=== PATIENT | female | born 1960 | race Caucasian/White ===

== ENCOUNTER 2017-09-29 16:41 | Emergency (ER) | payer MEDICARE, OTHER ==
[~2017-09-29] VITALS: Ht 160 cm; Wt 53.0 kg
[~2017-09-29 16:41] MED LIST: ALBU1AER INH; DEXI30CA2 PO; LYRI150C PO; MORP60TA20 PO; SERT-132 PO; SYMB80AE INH
[2017-09-29 16:44] VITALS: BP 147/70; PULSE 109; RESP 16; TEMP 98.6; O2SAT 98
[2017-09-29] MEDS ORDERED: DIFL100T PO (17:06)
[2017-09-29] MEDS ORDERED: OMEP20TA93 PO (17:06)
[2017-09-29] MEDS ORDERED: LYRI150C PO (17:06)
[2017-09-29] MEDS ORDERED: MORP100T40 PO (17:06)
[2017-09-29 17:26] VITALS: PULSE 89; RESP 18; O2SAT 98
--- NOTE | 2017-09-29 18:29 | RADRPT ---
EXAM DATE/TIME: 09/29/2017 18:04 [facility] COMPARISON: No previous studies available for comparison. [facility] BIL[facility] VEN[facility]PLER, April 11, 2017 INDICATIONS : Left leg pain. MEDICAL HISTORY : Deep venous thrombosis. Chronic obstructive pulmonary disease. Gastroesophageal reflux disease. Ce rebrovascular accident. Migraines. Hypertension. Pneumonia. Hiatal hernia. IBS. Heart palpatations. L umbar fractures. Fibromyalgia. Arthritis. PTSD. Depression. SURGICAL HISTORY : Cholecystectomy. Hysterectomy. Fusion, cervical. Spinal stimulator. Right ankle surgery. ENCOUNTER: Initial ACUITY: 3 days PAIN SCORE: 4/10 LOCATION: Left leg. TECHNIQUE: Venous ultrasound of the leg was performed from the inguinal ligament to the proximal calf. Real-belkys e, color Doppler and spectral tracing, compression and augmentation techniques were used. FINDINGS: There is normal compressibility of the deep venous system from the inguinal region to the proximal ca lf. No echogenic clot is seen in the lumen of the common femoral, femoral, popliteal, and posterior tibial veins. There is a normal response of the venous system to proximal and distal augmentation an d respiration. CONCLUSION: Normal examination. Juan Pal MD on September 29, 2017 at 18:27 Board Certified Radiologist. This report was verified electronically.
[2017-09-29] MEDS ORDERED: KETOROLAC TROMETHAMINE 60 MG/2 ML (IM) VIAL IM ONE (18:45)
[2017-09-29] MEDS ORDERED: MELO15TA20 PO (18:45)
--- NOTE | 2017-09-29 18:46 | PD ---
HPI Chief Complaint: Musculoskeletal Complaint Time Seen by Provider: 17:18 Travel History International Travel<30 days: No Contact w/Intl Traveler<30days: No Traveled to known affect area: No History of Present Illness HPI 56-year-old female here for evaluation of left leg pain. She denies injury or trauma. She reports she did do extensive walking which is not normal for her yesterday. She awoke this morning with anterior posterior knee pain. Patient does have a history of DVT in 2013. She is not on anticoagulants at this time. She denies lower extremity swelling. She denies paresthesia or weakness of the extremity. Pain is worse with flexion of the knee and relieved with rest. PFSH Past Medical History Arthritis: Yes Asthma: No Blood Disorders: No Anxiety: No Depression: Yes Heart Rhythm Problems: Yes (PALPATATIONS) Cancer: No Cardiovascular Problems: No High Cholesterol: No Chest Pain: No Congestive Heart Failure: No COPD: Yes Cerebrovascular Accident: Yes ("VISUAL STROKE" 1998) Diabetes: No Diminished Hearing: No Deep Vein Thrombosis: Yes (LLE) Endocrine: No Fibromyalgia: Yes Gastrointestinal Disorders: Yes (REFLUX, ESOPHAGEAL STRICTURE) GERD: Yes Glaucoma: No Genitourinary: No Hepatitis: No Hiatal Hernia: Yes Hypertension: Yes Immune Disorder: No Medical other: Yes (RIGHT GREAT TOE FRACTURES) Musculoskeletal: Yes (BACK AND NECK, Fx L1-L2, Fx L4-L5,) Neurologic: Yes (STROKE IN EYES 1998, cervical dystonia, reflex sympathetic dystrophy) Psychiatric: No Reproductive: Yes (TOTAL HYSTERECTOMY) Respiratory: No Immunizations Current: No Myocardial Infarction: No Pneumonia: Yes Renal Failure: No Seizures: No Sleep Apnea: No Thyroid Disease: No Ulcer: No Tetanus Vaccination: < 5 Years Influenza Vaccination: No ?: Not Menopausal: Yes : 0 Para: 0 Miscarriage: 0 : 0 Past Surgical History Abdominal Surgery: Yes (PAVEL) AICD: No Appendectomy: No Body Medical Devices: TEETH, PLATES AND SCREWS CERVICAL NECK, SPINAL CORD STIMULATOR: JUL 2014 Cardiac Surgery: No Cholecystectomy: Yes Ear Surgery: No Endocrine Surgery: No Eye Surgery: No Genitourinary Surgery: No Gynecologic Surgery: Yes (HYSTERECTOMY) Hysterectomy: Yes Joint Replacement: No Neurologic Surgery: Yes (SPINAL STIMULATOR) Oral Surgery: No Pacemaker: No Thoracic Surgery: No Other Surgery: Yes Social History Alcohol Use: Yes (rare) Tobacco Use: Yes (1/2 PACK PER DAY) Substance Use: No Allergies-Medications (Allergen,Severity, Reaction): Coded Allergies: cefazolin (Unverified Allergy, Severe, Itching, 09/29/17) cefepime (Unverified Allergy, Severe, Rash, 09/29/17) FEVER DIFFICULTY BREATHING ceftaroline fosamil (Unverified Allergy, Severe, Rash, 09/29/17) FEVER DIFFICULTY BREATHING doxycycline (Unverified Allergy, Severe, NAUSEA VOMITING, 09/29/17) [employer] levofloxacin (Unverified Allergy, Severe, 09/29/17) HIVES; HIGH FEVER minocycline (Unverified Allergy, Severe, NAUSEA VOMITING, 09/29/17) [employer] tigecycline (Unverified Allergy, Severe, NAUSEA VOMITING, 09/29/17) [employer] vancomycin (Unverified Allergy, Intermediate, rashes/itchy, 09/29/17) imipramine (Unverified Allergy, Mild, 09/29/17) RASH, ELEVATED BP, DIFFICULTY BREATHING lidocaine (Unverified Allergy, Mild, 09/29/17) RASH, ELEVATED BP, DIFICULTY BREAthing cephalexin (Unverified Allergy, Unknown, 09/29/17) RASH, DIFFICULTY BREATHING, FEVER trazodone (Unverified Allergy, Unknown, 09/29/17) FEVER, RASH, DIFFICULTY BREATHING Reported Meds & Prescriptions Reported Meds & Active Scripts Active Meloxicam 15 Mg Tab 15 Mg PO DAILY Reported Diflucan (Fluconazole) 100 Mg Tab 100 Mg PO DAILY Omeprazole 20 Mg Tab 20 Mg PO DAILY Lyrica (Pregabalin) 150 Mg Cap 150 Mg PO TID Morphine Sulfate CR (Morphine Sulfate) 100 Mg Tab 100 Mg PO TID Review of Systems Except as stated in HPI: all other systems reviewed are Neg General / Constitutional: No: Fever Eyes: No: Visual changes HENT: No: Headaches Cardiovascular: No: Chest Pain or Discomfort Respiratory: No: Shortness of Breath Gastrointestinal: No: Abdominal Pain Genitourinary: No: Dysuria Physical Exam Narrative GENERAL: Well-nourished, well-developed patient. SKIN: Focused skin assessment warm/dry. HEAD: Normocephalic. EYES: No injection or drainage. NECK: Supple, trachea midline. No JVD or lymphadenopathy. CARDIOVASCULAR: Regular rate and rhythm without murmurs, gallops, or rubs. RESPIRATORY: Breath sounds equal bilaterally. No accessory muscle use. GASTROINTESTINAL: Abdomen soft, non-tender, nondistended. MUSCULOSKELETAL: No cyanosis. Hyper pigmentation noted to bilateral lower extremities. Tenderness and mild swelling to the left anterior posterior knee. Mild left calf tenderness. 2+ popliteal, posterior tibial, dorsal pedis pulses bilaterally. No pedal edema. Brisk cap refill. Data Data Last Documented VS Vital Signs Date Time Temp Pulse Resp B/P (MAP) Pulse Ox O2 Delivery O2 Flow Rate FiO2 09/29/17 17:26 89 18 98 Room Air 09/29/17 16:44 98.6 147/70 (95) Orders Orders Us Leg Venous Doppler (09/29/17 17:24) Ketorolac Inj (Toradol Inj) (09/29/17 18:45) Joseph Bandage (09/29/17 18:41) MDM Medical Decision Making Medical Screen Exam Complete: Yes Emergency Medical Condition: Yes Differential Diagnosis Differential diagnosis for left leg pain include but are not limited to: Knee sprain/strain, meniscal injury, DVT Narrative Course 36-year-old female here with nontraumatic left knee pain times one day. Patient has a history of DVT in the left leg in 2013. She has generalized anterior/posterior knee pain. No signs of infection. The joint is stable. The extremity is neurovascularly intact. Ultrasound of the left lower extremity is negative for DVT. Patient will be treated for knee strain. Diagnosis Primary Impression: Knee pain Qualified Codes: M25.562 - Pain in left knee Referrals: Primary Care Physician Additional Instructions: Ice and elevate the extremity. Avoid prolonged walking on the leg. Take medication as prescribed. Follow-up the primary doctor Scripts Meloxicam (Meloxicam) 15 Mg Tab 15 MG PO DAILY for Arthritis Pain, #14 TAB 0 Refills Prov: Anabell Maurer 09/29/17 Disposition: 01 DISCHARGE HOME Condition: Stable Anabell Maurer Sep 29, 2017 18:46
== END 2017-09-29 19:00 | disposition home or self-care (01) ==
LOC: PHEFT 16:41
DX: M25.562 Pain in left knee (principal); I10 Essential (primary) hypertension; J44.9 Chronic obstructive pulmonary disease, unspecified; F32.9 Major depressive disorder, single episode, unspecified; M79.7 Fibromyalgia; K21.9 Gastro-esophageal reflux disease without esophagitis; F17.200 Nicotine dependence, unspecified, uncomplicated; Z86.718 Personal history of other venous thrombosis and embolism; Z86.73 Personal history of transient ischemic attack (TIA), and cerebral infarction without residual deficits
CPT/HCPCS: 93971; 96372; 99285; J1885

== ENCOUNTER 2017-12-27 19:52 | Emergency (ER) | payer MEDICARE, OTHER ==
[~2017-12-27] VITALS: Ht 162.6 cm; Wt 52.3 kg
[~2017-12-27 19:52] MED LIST changes: -ALBU1AER INH; -DEXI30CA2 PO; +DIFL100T PO; +MELO15TA20 PO; +MORP100T40 PO; -MORP60TA20 PO; +OMEP20TA93 PO; -SERT-132 PO; -SYMB80AE INH
[2017-12-27 19:57] VITALS: BP 188/94; PULSE 104; RESP 18; TEMP 98.6; O2SAT 100
[2017-12-27] MEDS ORDERED: ACETAMINOPHEN/HYDROcodone 325 MG/5 MG TAB PO ONE (20:30)
[2017-12-27 21:15] VITALS: BP 132/75; PULSE 82; RESP 14; O2SAT 99
[2017-12-27] MEDS ORDERED: KETOROLAC TROMETHAMINE 30 MG/ML (IVP) VIAL IV PUSH ONE (21:30)
[2017-12-27 21:36] LABS: BASOPHIL % 0.5 % (0.0-2.0); EOSINOPHIL # 0.1 TH/MM3 (0-0.4); EOSINOPHIL % 1.7 % (0.0-4.0); HEMATOCRIT 38.1 % (35.0-46.0); HEMOGLOBIN 12.5 GM/DL (11.6-15.3); LYMPH % 34.8 % (9.0-44.0); LYMPHOCYTE # 2.6 TH/MM3 (1.0-4.8); MEAN CELL VOLUME 88.5 FL (80.0-100.0); MEAN CORPUSCULAR HGB CONC 32.7 % (32.0-36.0); MEAN PLATELET VOLUME 7.3 FL (7.0-11.0); MONO % 8.9 % (0.0-8.0); MONOCYTE # 0.7 TH/MM3 (0-0.9); NEUT % 54.1 % (16.0-70.0); PLATELET COUNT 268 TH/MM3 (150-450); RED CELL DISTRIBUTION WIDTH 12.9 % (11.6-17.2); WHITE BLOOD COUNT 7.4 TH/MM3 (4.0-11.0)
--- NOTE | 2017-12-27 21:42 | RADRPT ---
EXAM DATE/TIME: 12/27/2017 20:40 [facility] COMPARISON: US LEG LEFT VENOUS DOPPLER, September 29, 2017, 18:04. EXTERNAL COMPARISON : [facility], [facility] LE[facility], [facility] BILATE [facility]AL VENOUS DOPPLER, May 27, 2016. [facility], US LEG, BILATERAL VENOUS DOPPLER, April 15, 2 016. INDICATIONS : Left leg swelling. MEDICAL HISTORY : Deep venous thrombosis. Chronic obstructive pulmonary disease. Hypercholesterolemia. Cerebrovascul ar accident. Migraines. Irregular heartbeat. Hypertension. Pneumonia. Hiatal hernia. GERD. Fibromyalg ia. Arthritis. PTSD. Depression. Toe fractures. Back fractures. IBS. SURGICAL HISTORY : Hysterectomy. Cholecystectomy. Fusion, cervical. Spinal stimulator. Right ankle surgery. ENCOUNTER: [facility] ACUITY: 1 day PAIN SCORE: 5/10 LOCATION: Left leg. TECHNIQUE: Venous ultrasound of the leg was performed from the inguinal ligament to the proximal calf. Real-belkys e, color Doppler and spectral tracing, compression and augmentation techniques were used. FINDINGS: Normal flow is seen in the common femoral, femoral, popliteal, and peroneal veins. No flow is seen wi thin the posterior tibial vein. CONCLUSION: Thrombus in the left posterior tibial vein the remaining visualized veins in the left lower extremity are patent. Juan Ty MD on December 27, 2017 at 21:38 Board Certified Radiologist. This report was verified electronically.
[2017-12-27 21:57] LABS: CHLORIDE 105 MEQ/L (98-107); SODIUM (NA) 141 MEQ/L (136-145)
[2017-12-27 22:00] LABS: CALCIUM 8.5 MG/DL (8.5-10.1)
[2017-12-27] MEDS ORDERED: traMADol HCL 50 MG TAB PO ONE (22:00)
[2017-12-27 22:01] LABS: ALBUMIN 3.6 GM/DL (3.4-5.0); BICARBONATE 30.1 MEQ/L (21.0-32.0); BLOOD UREA NITROGEN 7 MG/DL (7-18); GLUCOSE,RANDOM 126 MG/DL (74-106)
[2017-12-27 22:03] LABS: PROTHROMBIN TIME - PATIENT 10.2 SEC (9.8-11.6)
[2017-12-27 22:04] VITALS: BP 161/90; PULSE 90; RESP 14; O2SAT 99
[2017-12-27 22:04] LABS: ALT (GPT) 19 U/L (10-53); AST (GOT) 29 U/L (15-37); CREATININE 0.87 MG/DL (0.50-1.00); GLOMERULAR FILTRATION RATE 67 ML/MIN (>89)
[2017-12-27 22:06] LABS: TOTAL BILIRUBIN ADULT 0.4 MG/DL (0.2-1.0); TOTAL PROTEIN 7.3 GM/DL (6.4-8.2)
[2017-12-27 22:07] LABS: ALKALINE PHOSPHATASE 126 U/L (45-117)
--- NOTE | 2017-12-27 22:07 | PD ---
HPI Chief Complaint: Edema Time Seen by Provider: 20:17 Travel History International Travel<30 days: No Contact w/Intl Traveler<30days: No Traveled to known affect area: No History of Present Illness HPI Patient is a 57-year-old female who comes in complaining of left leg swelling. She says it started on Tuesday, she went to urgent care and they told her she might have gout or pseudogout. She says she has been taking diclofenac and using a topical cream without relief of her symptoms. She says that the urgent care told her to come to the ED if her pain continued for possible joint aspiration. She denies fever chills. She denies chest pain or shortness of breath. She does have a history of blood clots in the past. She is not currently taking any blood thinners. Severity is mild to moderate. PFSH Past Medical History Arthritis: Yes Asthma: No Blood Disorders: No Anxiety: No Depression: Yes Heart Rhythm Problems: Yes (PALPATATIONS) Cancer: No Cardiovascular Problems: No High Cholesterol: No Chest Pain: No Congestive Heart Failure: No COPD: Yes Cerebrovascular Accident: Yes ("VISUAL STROKE" 1998) Diabetes: No Diminished Hearing: No Deep Vein Thrombosis: Yes (LLE) Endocrine: No Fibromyalgia: Yes Gastrointestinal Disorders: Yes (REFLUX, ESOPHAGEAL STRICTURE) GERD: Yes Glaucoma: No Genitourinary: No Hepatitis: No Hiatal Hernia: Yes Hypertension: Yes Immune Disorder: No Medical other: Yes (RIGHT GREAT TOE FRACTURES) Musculoskeletal: Yes (BACK AND NECK, Fx L1-L2, Fx L4-L5,) Neurologic: Yes (STROKE IN EYES 1998, cervical dystonia, reflex sympathetic dystrophy) Psychiatric: No Reproductive: Yes (TOTAL HYSTERECTOMY) Respiratory: No Immunizations Current: No Myocardial Infarction: No Pneumonia: Yes Renal Failure: No Seizures: No Sleep Apnea: No Thyroid Disease: No Ulcer: No Influenza Vaccination: No ?: Not Menopausal: Yes : 0 Para: 0 Miscarriage: 0 : 0 Past Surgical History Abdominal Surgery: Yes (PAVEL) AICD: No Appendectomy: No Body Medical Devices: TEETH, PLATES AND SCREWS CERVICAL NECK, SPINAL CORD STIMULATOR: JUL 2014 Cardiac Surgery: No Cholecystectomy: Yes Ear Surgery: No Endocrine Surgery: No Eye Surgery: No Genitourinary Surgery: No Gynecologic Surgery: Yes (HYSTERECTOMY) Hysterectomy: Yes Joint Replacement: No Neurologic Surgery: Yes (SPINAL STIMULATOR) Oral Surgery: No Pacemaker: No Thoracic Surgery: No Other Surgery: Yes Social History Alcohol Use: Yes (rare) Tobacco Use: Yes (1/2 PACK PER DAY) Substance Use: No Allergies-Medications (Allergen,Severity, Reaction): Coded Allergies: cefazolin (Unverified Allergy, Severe, Itching, 12/27/17) cefepime (Unverified Allergy, Severe, Rash, 12/27/17) FEVER DIFFICULTY BREATHING ceftaroline fosamil (Unverified Allergy, Severe, Rash, 12/27/17) FEVER DIFFICULTY BREATHING doxycycline (Unverified Allergy, Severe, NAUSEA VOMITING, 12/27/17) [employer] levofloxacin (Unverified Allergy, Severe, 12/27/17) HIVES; HIGH FEVER minocycline (Unverified Allergy, Severe, NAUSEA VOMITING, 12/27/17) [employer] tigecycline (Unverified Allergy, Severe, NAUSEA VOMITING, 12/27/17) [employer] vancomycin (Unverified Allergy, Intermediate, rashes/itchy, 12/27/17) imipramine (Unverified Allergy, Mild, 12/27/17) RASH, ELEVATED BP, DIFFICULTY BREATHING lidocaine (Unverified Allergy, Mild, 12/27/17) RASH, ELEVATED BP, DIFICULTY BREAthing cephalexin (Unverified Allergy, Unknown, 12/27/17) RASH, DIFFICULTY BREATHING, FEVER trazodone (Unverified Allergy, Unknown, 12/27/17) FEVER, RASH, DIFFICULTY BREATHING Reported Meds & Prescriptions Reported Meds & Active Scripts Active Reported Omeprazole 20 Mg Tab 20 Mg PO DAILY Lyrica (Pregabalin) 150 Mg Cap 150 Mg PO TID Morphine Sulfate CR (Morphine Sulfate) 100 Mg Tab 100 Mg PO TID Review of Systems Except as stated in HPI: all other systems reviewed are Neg General / Constitutional: No: Fever, Chills HENT: No: Headaches, Lightheadedness Cardiovascular: No: Chest Pain or Discomfort Respiratory: No: Shortness of Breath Musculoskeletal: Positive: Edema, Pain Skin: No Rash, No Itching Physical Exam Narrative GENERAL: Awake and alert, in no acute distress. SKIN: Focused skin assessment warm/dry. HEAD: Atraumatic. Normocephalic. EYES: Pupils equal and round. No scleral icterus. ENT: Mucous membranes pink and moist. NECK: Trachea midline. No JVD. CARDIOVASCULAR: Regular rate and rhythm. No murmur appreciated. RESPIRATORY: No accessory muscle use. Clear to auscultation. Breath sounds equal bilaterally. GASTROINTESTINAL: Abdomen soft, non-tender, nondistended. MUSCULOSKELETAL: No obvious deformities. No clubbing. No cyanosis. Large, tense edema of the left lower extremity with erythema around the calf. Tender to palpation of the left calf. NEUROLOGICAL: Awake and alert. No obvious cranial nerve deficits. Motor grossly within normal limits. Normal speech. PSYCHIATRIC: Appropriate mood and affect; insight and judgment normal. Data Data Last Documented VS Vital Signs Date Time Temp Pulse Resp B/P (MAP) Pulse Ox O2 Delivery O2 Flow Rate FiO2 12/27/17 22:04 90 14 161/90 (113) 99 Room Air 12/27/17 19:57 98.6 Orders Orders Iv Access Insert/Monitor (12/27/17 20:24) Complete Blood Count With Diff (12/27/17 20:24) Comprehensive Metabolic Panel (12/27/17 20:24) Act Partial Throm Time (Ptt) (12/27/17 20:24) Prothrombin Time / Inr (Pt) (12/27/17 20:24) Knee, Complete (4vws) (12/27/17 ) Us Leg Venous Doppler (12/27/17 ) Acetamin-Hydrocod 325-5 Mg ([place] 5-325 (12/27/17 20:30) Ketorolac Inj (Toradol Inj) (12/27/17 21:30) Tramadol (Ultram) (12/27/17 22:00) Rivaroxaban (Xarelto) (12/27/17 22:15) Labs Laboratory Tests Test 12/27/17 21:05 White Blood Count 7.4 TH/MM3 Red Blood Count 4.30 MIL/MM3 Hemoglobin 12.5 GM/DL Hematocrit 38.1 % Mean Corpuscular Volume 88.5 FL Mean Corpuscular Hemoglobin 29.0 PG Mean Corpuscular Hemoglobin Concent 32.7 % Red Cell Distribution Width 12.9 % Platelet Count 268 TH/MM3 Mean Platelet Volume 7.3 FL Neutrophils (%) (Auto) 54.1 % Lymphocytes (%) (Auto) 34.8 % Monocytes (%) (Auto) 8.9 % Eosinophils (%) (Auto) 1.7 % Basophils (%) (Auto) 0.5 % Neutrophils # (Auto) 4.0 TH/MM3 Lymphocytes # (Auto) 2.6 TH/MM3 Monocytes # (Auto) 0.7 TH/MM3 Eosinophils # (Auto) 0.1 TH/MM3 Basophils # (Auto) 0.0 TH/MM3 CBC Comment DIFF FINAL Differential Comment Prothrombin Time 10.2 SEC Prothromb Time International Ratio 1.0 RATIO Activated Partial Thromboplast Time 27.8 SEC Blood Urea Nitrogen 7 MG/DL Creatinine 0.87 MG/DL Random Glucose 126 MG/DL Total Protein 7.3 GM/DL Albumin 3.6 GM/DL Calcium Level 8.5 MG/DL Alkaline Phosphatase 126 U/L Aspartate Amino Transf (AST/SGOT) 29 U/L Alanine Aminotransferase (ALT/SGPT) 19 U/L Total Bilirubin 0.4 MG/DL Sodium Level 141 MEQ/L Potassium Level 3.2 MEQ/L Chloride Level 105 MEQ/L Carbon Dioxide Level 30.1 MEQ/L Anion Gap 6 MEQ/L Estimat Glomerular Filtration Rate 67 ML/MIN [facility] Medical Decision Making Medical Screen Exam Complete: Yes Emergency Medical Condition: Yes Medical Record Reviewed: Yes Differential Diagnosis DVT versus cellulitis versus arthritis versus gout Narrative Course Patient is a 57-year-old female who comes in complaining of left leg pain and swelling. Exam shows edema and tenderness to the left calf. IV established, labs sent. Labs show no acute abnormalities. X-ray of the knee performed shows no acute abnormalities. Ultrasound of the left leg shows a DVT. Last 24 hours Impressions Lower Extremity Ultrasound 12/27/17 0000 Signed Impressions: Service Date/Time: Wednesday, December 27, 2017 20:40 - CONCLUSION: Thrombus in the left posterior tibial vein the remaining visualized veins in the left lower extremity are patent. Juan Ty MD Patient will be given Xarelto. Discharge with a prescription for Xarelto. Advised follow-up with her doctor. Advised return anytime for any worsening symptoms. Diagnosis Primary Impression: DVT (deep venous thrombosis) Qualified Codes: I82.442 - Acute embolism and thrombosis of left tibial vein Patient Instructions: Deep Venous Thrombosis (ED), General Instructions Additional Instructions: Make sure to take your blood thinner as prescribed; Take 15mg twice a day for the first 21 days. On day 22 switch to taking 20 mg once a day. Follow-up with your doctor. Return to the ED as needed for any worsening symptoms. Scripts Rivaroxaban (Xarelto) 20 Mg Tab 20 MG PO DAILY for Blood Clot Prevention for 9 Days, #9 TAB 0 Refills Start the 20mg once a day on day 22. Prov: Yahaira Osorio MD 12/27/17 Rivaroxaban (Xarelto) 15 Mg Tab 15 MG PO Q12HR for Blood Clot Prevention for 21 Days, TAB 0 Refills Take 15mg twice a day for the first 21 days Prov: Yahaira Osorio MD 12/27/17 Disposition: 01 DISCHARGE HOME Condition: Stable Yahaira Osorio MD Dec 27, 2017 22:07
--- NOTE | 2017-12-27 22:09 | RADRPT ---
EXAM DATE/TIME: 12/27/2017 21:24 [facility] COMPARISON: No previous studies available for comparison. INDICATIONS : Left knee pain and swelling. No known injury. MEDICAL HISTORY : Arthritis. Hypertension Deep venous thrombosis. Chronic obstructive pulmonary disease. Cerebrov ascular accident.Fibromyalgia SURGICAL HISTORY : Cholecystectomy. Hysterectomy. Fusion, cervical. Spinal stimulator. Right ankle surgery. ENCOUNTER: Initial ACUITY: 2 days PAIN SCORE: 5/10 LOCATION: Left knee. FINDINGS: The knee joint is aligned. No fracture is seen. Some hypertrophic change of the medial tibial plateau . There is a mild effusion. There is edema seen throughout the subcutaneous tissues. The bones are os teopenic. CONCLUSION: 1. The subcutaneous edema. 2. Joint effusion. Juan Ty MD on December 27, 2017 at 22:06 Board Certified Radiologist. This report was verified electronically.
[2017-12-27] MEDS ORDERED: RIVAROXABAN 15 MG TAB PO ONE (22:15)
[2017-12-27] MEDS ORDERED: XARE20TA PO (22:21)
[2017-12-27] MEDS ORDERED: XARE15TA PO (22:21)
== END 2017-12-27 22:41 | disposition home or self-care (01) ==
LOC: PHED 19:52
DX: I82.442 Acute embolism and thrombosis of left tibial vein (principal); M19.90 Unspecified osteoarthritis, unspecified site; F32.9 Major depressive disorder, single episode, unspecified; J44.9 Chronic obstructive pulmonary disease, unspecified; M79.7 Fibromyalgia; I10 Essential (primary) hypertension; F17.210 Nicotine dependence, cigarettes, uncomplicated; Z86.73 Personal history of transient ischemic attack (TIA), and cerebral infarction without residual deficits
CPT/HCPCS: 73564; 80053; 85025; 85610; 85730; 93971; 96374; 99285; J1885

== ENCOUNTER 2018-01-14 13:11 | Emergency (ER) | payer MEDICARE, OTHER ==
[~2018-01-14] VITALS: Ht 160 cm; Wt 52.1 kg
[~2018-01-14 13:11] MED LIST changes: -DIFL100T PO; -MELO15TA20 PO; +XARE15TA PO; +XARE20TA PO
[2018-01-14 13:22] VITALS: BP 166/81; PULSE 94; RESP 20; TEMP 99.4
[2018-01-14] MEDS ORDERED: KETOROLAC TROMETHAMINE 30 MG/ML (IVP) VIAL IV PUSH ONE (14:15)
[2018-01-14] MEDS ORDERED: KETOROLAC TROMETHAMINE 60 MG/2 ML (IM) VIAL IM ONE (14:15)
--- NOTE | 2018-01-14 14:28 | PD ---
HPI Chief Complaint: Edema Time Seen by Provider: 13:33 Travel History International Travel<30 days: No Contact w/Intl Traveler<30days: No Traveled to known affect area: No History of Present Illness HPI 57yo F with PMH of RDS on morphine and following pain management here with c/o persistent pain and swelling in left leg. Pt was recently diagnosed with left leg DVT on 12/27/17 and has been on xarelto for 2.5 weeks. Said she has been compliant. Denies any fever, chest pain, sob, n/v, abdominal pain, focal weakness or numbness or trauma. Pt also with left sided neck pain that has been intermittent for years and follows with pain management regarding this. She has discoloration and bilateral lower extremity warmth and said she has always had this. There is some erythema in left leg in medial thigh and pt said that also has been there. PFSH Past Medical History Hx Anticoagulant Therapy: Yes (zarelto) Arthritis: Yes Asthma: No Blood Disorders: No Anxiety: No Depression: Yes Heart Rhythm Problems: Yes (PALPATATIONS) Cancer: No Cardiovascular Problems: Yes High Cholesterol: No Chest Pain: No Congestive Heart Failure: No COPD: Yes Cerebrovascular Accident: Yes (hx visual stroke) Diabetes: No Diminished Hearing: No Deep Vein Thrombosis: Yes (LLE) Endocrine: No Fibromyalgia: Yes Gastrointestinal Disorders: Yes (REFLUX, ESOPHAGEAL STRICTURE) GERD: Yes Glaucoma: No Genitourinary: No Hepatitis: No Hiatal Hernia: Yes Hypertension: Yes Immune Disorder: No Medical other: Yes (RIGHT GREAT TOE FRACTURES) Musculoskeletal: Yes (BACK AND NECK, Fx L1-L2, Fx L4-L5,) Neurologic: Yes (STROKE IN EYES 1998, cervical dystonia, reflex sympathetic dystrophy) Psychiatric: No Reproductive: Yes (TOTAL HYSTERECTOMY) Respiratory: No Immunizations Current: No Myocardial Infarction: No Pneumonia: Yes Renal Failure: No Seizures: No Sleep Apnea: No Thyroid Disease: No Ulcer: No Tetanus Vaccination: < 5 Years Influenza Vaccination: No ?: Not Menopausal: Yes : 0 Para: 0 Miscarriage: 0 : 0 Past Surgical History Abdominal Surgery: Yes (PAVEL) AICD: No Appendectomy: No Body Medical Devices: TEETH, PLATES AND SCREWS CERVICAL NECK, SPINAL CORD STIMULATOR: JUL 2014 Cardiac Surgery: No Cholecystectomy: Yes Ear Surgery: No Endocrine Surgery: No Eye Surgery: No Genitourinary Surgery: No Gynecologic Surgery: Yes (HYSTERECTOMY) Hysterectomy: Yes (full) Joint Replacement: No Neurologic Surgery: Yes (SPINAL STIMULATOR) Oral Surgery: No Pacemaker: No Thoracic Surgery: No Other Surgery: Yes Social History Alcohol Use: Yes (rare) Tobacco Use: Yes (1/2 PACK PER DAY) Substance Use: No Allergies-Medications (Allergen,Severity, Reaction): Coded Allergies: cefazolin (Unverified Allergy, Severe, Itching, 01/14/18) cefepime (Unverified Allergy, Severe, Rash, 01/14/18) FEVER DIFFICULTY BREATHING ceftaroline fosamil (Unverified Allergy, Severe, Rash, 01/14/18) FEVER DIFFICULTY BREATHING doxycycline (Unverified Allergy, Severe, NAUSEA VOMITING, 01/14/18) [facility] levofloxacin (Unverified Allergy, Severe, 01/14/18) HIVES; HIGH FEVER minocycline (Unverified Allergy, Severe, NAUSEA VOMITING, 01/14/18) [facility] tigecycline (Unverified Allergy, Severe, NAUSEA VOMITING, 01/14/18) [facility] vancomycin (Unverified Allergy, Intermediate, rashes/itchy, 01/14/18) imipramine (Unverified Allergy, Mild, Rash, 01/14/18) RASH, ELEVATED BP, DIFFICULTY BREATHING lidocaine (Unverified Allergy, Mild, Rash, 01/14/18) RASH, ELEVATED BP, DIFICULTY BREAthing cephalexin (Unverified Allergy, Unknown, Rash, 01/14/18) RASH, DIFFICULTY BREATHING, FEVER trazodone (Unverified Allergy, Unknown, Rash, 01/14/18) FEVER, RASH, DIFFICULTY BREATHING Reported Meds & Prescriptions Reported Meds & Active Scripts Active Xarelto (Rivaroxaban) 20 Mg Tab 20 Mg PO DAILY 9 Days Start the 20mg once a day on day 22. Xarelto (Rivaroxaban) 15 Mg Tab 15 Mg PO Q12HR 21 Days Take 15mg twice a day for the first 21 days Reported Omeprazole 20 Mg Tab 20 Mg PO DAILY Lyrica (Pregabalin) 150 Mg Cap 150 Mg PO TID Morphine Sulfate CR (Morphine Sulfate) 100 Mg Tab 100 Mg PO TID Review of Systems Except as stated in HPI: all other systems reviewed are Neg Physical Exam Narrative GENERAL: 57yo F not in distress. SKIN: Focused skin assessment warm/dry. HEAD: Atraumatic. Normocephalic. EYES: Pupils equal and round. No scleral icterus. No injection or drainage. ENT: No nasal bleeding or discharge. Mucous membranes pink and moist. NECK: No midline ttp cervical spine. Mild ttp left upper trapezius. CARDIOVASCULAR: Regular rate and rhythm. No murmur appreciated. RESPIRATORY: No accessory muscle use. Clear to auscultation. Breath sounds equal bilaterally. GASTROINTESTINAL: Abdomen soft, non-tender, nondistended. MUSCULOSKELETAL: LLE: +TTP left calf. +Warmth and discoloration in bilateral lower extremity but there is some increased erythema in left medial thigh compare to right side. However, pt said that is not new. Distal pulses intact in both lower extremities. NEUROLOGICAL: Awake and alert. No obvious cranial nerve deficits. Motor grossly within normal limits. Normal speech. PSYCHIATRIC: Appropriate mood and affect; insight and judgment normal. Data Data Last Documented VS Vital Signs Date Time Temp Pulse Resp B/P (MAP) Pulse Ox O2 Delivery O2 Flow Rate FiO2 01/14/18 16:21 79 16 160/79 (106) 98 01/14/18 13:39 Room Air 01/14/18 13:22 99.4 Orders Orders Ketorolac Inj (Toradol Inj) (01/14/18 14:15) Complete Blood Count With Diff (01/14/18 14:12) Basic Metabolic Panel (Bmp) (01/14/18 14:12) Ketorolac Inj (Toradol Inj) (01/14/18 14:15) Ed Discharge Order (01/14/18 15:53) Labs Laboratory Tests Test 01/14/18 14:25 White Blood Count 7.6 TH/MM3 Red Blood Count 4.19 MIL/MM3 Hemoglobin 11.8 GM/DL Hematocrit 36.7 % Mean Corpuscular Volume 87.6 FL Mean Corpuscular Hemoglobin 28.1 PG Mean Corpuscular Hemoglobin Concent 32.1 % Red Cell Distribution Width 12.7 % Platelet Count 261 TH/MM3 Mean Platelet Volume 7.8 FL Neutrophils (%) (Auto) 66.1 % Lymphocytes (%) (Auto) 26.4 % Monocytes (%) (Auto) 5.3 % Eosinophils (%) (Auto) 1.7 % Basophils (%) (Auto) 0.5 % Neutrophils # (Auto) 5.1 TH/MM3 Lymphocytes # (Auto) 2.0 TH/MM3 Monocytes # (Auto) 0.4 TH/MM3 Eosinophils # (Auto) 0.1 TH/MM3 Basophils # (Auto) 0.0 TH/MM3 CBC Comment DIFF FINAL Differential Comment Blood Urea Nitrogen 9 MG/DL Creatinine 0.89 MG/DL Random Glucose 170 MG/DL Calcium Level 8.6 MG/DL Sodium Level 143 MEQ/L Potassium Level 3.5 MEQ/L Chloride Level 108 MEQ/L Carbon Dioxide Level 28.3 MEQ/L Anion Gap 7 MEQ/L Estimat Glomerular Filtration Rate 66 ML/MIN MDM Medical Decision Making Medical Screen Exam Complete: Yes Emergency Medical Condition: Yes Differential Diagnosis DVT vs. cellulitis vs. chronic pain vs. venous insufficiency Narrative Course 57yo F with persistent pain in left leg. Pt said it is not worst but just wants something for pain and toradol helped last time. Pt given toradol and pain has improved. Pt denies any fever and insist that there is no new redness and no pain in left medial thigh where there is some redness. Labs reviewed, no leukocytosis. H/H normal. Creatinine normal. Pt is well appearing so will have pt follow up with primary care and continue taking xarelto. Return precautions given. Diagnosis Primary Impression: Left leg pain Patient Instructions: General Instructions Departure Forms: Tests/Procedures Additional Instructions: Please follow up with your primary care physician and pain management physician. Return to the ED if symptoms worsen. Med/Other Pt SpecificInfo: No Change to Meds Disposition: 01 DISCHARGE HOME Condition: Stable Sayra Morejon Jan 14, 2018 14:28
[2018-01-14 14:48] LABS: BICARBONATE 28.3 MEQ/L (21.0-32.0); CALCIUM 8.6 MG/DL (8.5-10.1)
[2018-01-14 14:52] LABS: CREATININE 0.89 MG/DL (0.50-1.00)
[2018-01-14 14:58] LABS: AUTOMATED NEUTROPHIL # 5.1 TH/MM3 (1.8-7.7); BASOPHIL % 0.5 % (0.0-2.0); EOSINOPHIL # 0.1 TH/MM3 (0-0.4); EOSINOPHIL % 1.7 % (0.0-4.0); HEMATOCRIT 36.7 % (35.0-46.0); HEMOGLOBIN 11.8 GM/DL (11.6-15.3); LYMPH % 26.4 % (9.0-44.0); MEAN CELL VOLUME 87.6 FL (80.0-100.0); MEAN CORPUSCULAR HEMOGLOBIN 28.1 PG (27.0-34.0); MEAN CORPUSCULAR HGB CONC 32.1 % (32.0-36.0); MEAN PLATELET VOLUME 7.8 FL (7.0-11.0); MONO % 5.3 % (0.0-8.0); MONOCYTE # 0.4 TH/MM3 (0-0.9); NEUT % 66.1 % (16.0-70.0); PLATELET COUNT 261 TH/MM3 (150-450); RED BLOOD COUNT 4.19 MIL/MM3 (4.00-5.30); RED CELL DISTRIBUTION WIDTH 12.7 % (11.6-17.2); WHITE BLOOD COUNT 7.6 TH/MM3 (4.0-11.0)
[2018-01-14 16:21] VITALS: BP 160/79
== END 2018-01-14 16:22 | disposition home or self-care (01) ==
LOC: PHED 13:11
DX: M79.605 Pain in left leg (principal); F17.210 Nicotine dependence, cigarettes, uncomplicated; F32.9 Major depressive disorder, single episode, unspecified; J44.9 Chronic obstructive pulmonary disease, unspecified; M79.7 Fibromyalgia; K21.9 Gastro-esophageal reflux disease without esophagitis; I10 Essential (primary) hypertension; Z79.01 Long term (current) use of anticoagulants; Z86.718 Personal history of other venous thrombosis and embolism; Z88.1 Allergy status to other antibiotic agents
CPT/HCPCS: 80048; 85025; 96374; 99284; J1885